=== PATIENT | male | born 1945 | race Caucasian/White ===

== ENCOUNTER 2024-03-04 09:46 | Emergency (ER) | payer MEDICARE, SELFPAY ==
[2024-03-04 10:04] VITALS: BP 99/79; PULSE 102; RESP 16; TEMP 36.8; O2SAT 99
--- NOTE | 2024-03-04 10:06 | ED_ITS ---
HPI - Abdominal Pain General Chief Complaint: Abdominal Pain Stated Complaint: ABD PAIN,DIZZINESS,NAUSEA Time Seen by Provider: 03/04/24 09:49 Source: patient Mode of arrival: ambulatory Limitations: no limitations History of Present Illness HPI narrative: Patient is a 78-year-old male who presents with 3 weeks of abdominal pain that is worsening along with intermittent dizziness and nausea. Patient states abdom inal pain wakes him up at night and he turns to adjust positions causing more pain. Reports pain is diffuse across the entire abdomen. Denies any changes in bowel habits. Denies any blood in urine, low back pain, fever, chills. Has no history of abdominal surgeries. Has had decreased in appetite due to general fatigue and not feeling well. Related Data Home Medications Medication Instructions Recorded Confirmed alendronate 70 mg tablet 70 mg PO DIRECTED 03/04/24 03/04/24 Allergies Allergy/AdvReac Type Severity Reaction Status Date / Time No Known Allergies Allergy Verified 03/04/24 10:22 Review of Systems Review of Systems: All systems reviewed & are unremarkable except as noted in HPI and below Constitutional: Constitutional: Denies body ache(s), Denies chills, Denies fatigue, Denies fever(s), Denies headache(s), Denies malaise and Denies weakness Eyes: Eyes: Denies blurry vision, Denies irritation and Denies loss of vision ENT: Denies otalgia, Denies headache(s), Denies nasal discharge, Denies sinus pain and Denies sore throat Cardiovascular: Cardiovascular: Denies chest pain, Denies irregular heart rhythm and Denies dyspnea Respiratory: Respiratory: Denies dyspnea Gastrointestinal: Gastrointestinal: Reports abdominal pain, Denies melena, Denies hematochezia, Denies diarrhea, Reports nausea and Denies vomiting Musculoskeletal: Musculoskeletal: Denies back pain, Denies myalgias and Denies arthralgias Integumentary/Breasts: Skin/Breast: Denies pruritus and Denies rash Neurologic: Reports dizziness, Denies headache(s), Denies loss of vision and Denies weakness Psychiatric: Psychiatric: Reports no additional psychiatric complaints Endocrine: Endocrine: Denies fatigue PMFSH Comments At time of signature, agree with nursing past medical, surgical, social and family history. There is no relevant family history pertinent to the presenting complaint. Exam Const: General: cooperative, healthy appearing, comfortable, no acute distress and well nourished Nutritional Appearance: well nourished Orientation/consciousness: patient oriented x3 Limitations: no limitations HENMT: Head: normal to inspection, normocephalic and atraumatic Ears: hearing grossly normal bilaterally and external ears normal Face/Nose/Sinus: Normal external nose present, normal facial exam and face symmetric Face and sinus: normal facial exam and face symmetric Mouth: Yes lip normal Eyes: General: appearance normal, both eyes and all related structures Alignment and Position: alignment normal and position normal Periorbital: periorbital findings normal Eyelids: eyelids normal Pupils: Equal, round and reactive pupils present EOM: EOMs intact bilaterally Neck: Neck: normal visual inspection, full ROM and supple Chest: Chest palpation & inspection: normal inspection of the chest Resp: Effort & Inspection: normal respiratory effort and able to speak in complete sentences Auscultation: clear to auscultation bilaterally Cardio: Rate: regular rate Rhythm: regular rhythm Heart sounds: S1 normal heart sound present and S2 normal heart sound present GI: Inspection: normal to inspection GI Palp: Yes abdominal tenderness, Yes Firmness to palpation present (GI), Yes Tenderness to palpation present (GI) and Yes Guarding due to palpation present (GI) Auscultation: Hypoactive bowel sounds present Skin: General skin exam: normal color and no rashes or lesions noted Neuro: General: patient oriented x3 and moves all extremities Cranial nerves: Yes Equal, round and reactive pupils present Speech: normal speech Gait exam (Neuro): Normal gait present Extrem: General: normal to inspection, full ROM and no edema Psych: Appearance: grossly normal and well kempt Mental Status: mental status grossly normal Speech and movement: Normal speech and movement present Affect: normal affect Attitude: cooperative Thought process: Normal thought process present Course Course Emergency Course: Patient being transferred to [facility] for further workup and evaluation of abdominal pain. Portions of this record may have been created with voice recognition software Level of Care: Express Care Visit Vital Signs Vital signs: Vital Signs Temperature 36.8 C 03/04/24 10:04 Pulse Rate 102 H 03/04/24 10:04 Respiratory Rate 16 03/04/24 10:04 Blood Pressure 99/79 L 03/04/24 10:04 Pulse Oximetry 99 03/04/24 10:04 Temperature 36.8 C 03/04/24 10:04 Pulse Rate 102 H 03/04/24 10:04 Respiratory Rate 16 03/04/24 10:04 Blood Pressure 99/79 L 03/04/24 10:04 Pulse Oximetry 99 03/04/24 10:04 Reviewed Transfer Transfered to: [facility] Transportation: Other (Private auto) Transfer rationale: Abdominal pain, dizziness Accepting physician: Stephanie MARAVILLA MDM - Abdominal Pain MDM Narrative Medical decision making narrative: Patient being transferred to [facility] for further workup and evaluation for abdominal pain and dizziness Differential Diagnosis Differential diagnosis: Likely abdominal pain, acute appendicitis, constipation, diverticulitis, pancreatitis, small bowel obstruction and other (Cancer) Medical Records Attestation: I reviewed the patient's medical records. Discharge Plan Discharge Clinical Impression: Abdominal pain Patient Disposition: Acute Care Hospital Condition: Stable Prescriptions: No Action alendronate 70 mg tablet 70 mg PO DIRECTED Follow-up/Referrals: PHYSICIAN NOT ON STAFF,NONSTAFF [Primary Care Provider] - Time of Disposition: 10:23
== END 2024-03-04 10:18 | disposition short-term general hospital (02) ==
PROVIDERS: Emergency Provider Nurse Practitioner Family
DX: R10.9 Unspecified abdominal pain (principal); M81.0 Age-related osteoporosis without current pathological fracture
CPT/HCPCS: 99202; G0463

== ENCOUNTER 2024-03-04 10:38 | Emergency (ER) | payer MEDICARE, SELFPAY ==
--- NOTE | ~2024-03-04 | CT_ITS ---
EXAMINATION: CTA chest PE abdomen pel DATE: 03/04/2024 15:17 INDICATION: Tachycardia. Cough. Abdominal pain. TECHNIQUE: Computed tomography angiography (CTA) of the chest was performed with 100 mL Omnipaque-350 intravenous contrast timed to evaluate the pulmonary arteries. Coronal maximum intensity projection 3D-reconstructions were created by the technologist. Computed tomography (CT) of the abdomen and pelv is was performed with intravenous contrast. Automated exposure control and iterative reconstruction t echnique were employed. The dose-length product was 405.73 mGy-cm. COMPARISON: None. FINDINGS: CTA chest: The lungs demonstrate mild atelectasis. A calcified right lung nodule and calcified right hilar and paraesophageal lymph nodes are consistent with old granulomatous disease. No pleural effusi on. The heart size is normal. There are coronary artery calcifications. No pericardial effusion. Ther e are changes of posterior fusion procedure from T2 to T7. There is mild chronic height loss of multi ple vertebral bodies. CT abdomen and pelvis: There are greater than 40 low-attenuation masses in the liver measuring up to 6.1 cm. The gallbladder is normal in size. Gallbladder wall thickening may be secondary to interstiti al edema. The spleen is normal. There are 1.5 cm and 2.5 cm low-attenuation masses in the pancreas. T he adrenal glands are normal. There is cortical thinning of the kidneys. The prostate is mildly enlar ged. There are brachytherapy seeds in the prostate. There is diffuse bladder wall thickening, likely secondary to chronic outlet obstruction. There is diverticulosis of the colon without evidence of div erticulitis. The appendix is normal. There are bilateral inguinal hernias containing fat. There are n o pathologically enlarged lymph nodes. There is trace ascites. There is screw fixation of left femora l head and neck. 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 There is a burst fracture of L1 with sc lerosis, likely subacute. IMPRESSION: 1. Pancreatic masses and liver masses, consistent with metastatic disease. Consider ultrasound-guided core needle biopsy of a liver mass. Reviewed, dictated and finalized at location [facility] IMPRESSION: 1. Pancreatic masses and liver masses, consistent with metastatic disease. Cons ider ultrasound-guided core needle biopsy of a liver mass.
[2024-03-04 10:39] VITALS: BP 117/78; PULSE 104; RESP 16; TEMP 36.6; O2SAT 98
[2024-03-04 12:16] LABS: Hematocrit 35.6 % (42.0-52.0); Hemoglobin 11.8 g/dL (14.0-18.0); Mean Corpuscular HGB Conc 33.1 g/dl (32-36); Mean Corpuscular Hemoglobin 30.8 pg (26-34); Mean Platelet Volume 9.9 fl (7.4-10.4); Platelet Count Result 348 k/mm3 (150-375); Red Blood Count 3.83 M/mm3 (4.6-6.20); Red Cell Distribution Width 12.5 % (11.5-14.5); White Blood Count 21.9 K/mm3 (4.5-10.0)
[2024-03-04 12:27] LABS: Alanine Aminotransferase 69 U/L (6-50); Albumin Level 3.6 g/dL (3.5-5.1); Alkaline Phosphatase 345 U/L (38-126); Anion Gap 9 mmol/L (4-12); Aspartate Amino Transferase 86 U/L (17-59); Bilirubin,Total 0.8 mg/dL (0.2-1.3); Blood Urea Nitrogen 24 mg/dL (9-20); Calcium 8.6 mg/dL (8.4-10.2); Carbon Dioxide 26 mmol/L (22-30); Chloride 95 mmol/L (98-107); Estimated Glomerular Filt Rate 39; Glucose 108 mg/dL (65-110); Lipase 207 U/L (23-300); Potassium 3.9 mmol/L (3.4-5.0); Sodium 130 mmol/L (137-145)
[2024-03-04 12:39] LABS: Add Urine Microscopic? YES; Appearance Urine Cloudy (Clear); Bacteria Urine None Seen /hpf; Bilirubin Urine Negative (Negative); Blood Urine Negative (Negative); Color Urine Dark Yellow (Yellow); Glucose Urine UA Negative (Negative); Granular Casts Urine Present /lpf; Ketones Urine Trace mg/dL (Negative); Leukocyte Esterase Ur Negative LEU/UL (Negative); Mucus Urine Present /lpf; Nitrate Urine Negative (Negative); Non Pathogenic Casts >20; Protein Urine 1+ mg/dL (Negative); RBC Urine 0-2 /hpf (0-2); Specific Grav Ur 1.016 (1.001-1.035); Squamous Epithelial Cell Urine Moderate /hpf (Few); WBC Urine 0-5 /hpf (0-3)
[2024-03-04 12:49] LABS: Band Neutrophils Percent 11 % (0-6); Lymphocytes Absolute Manual 0.65 K/mm3 (1.1-4.5); Lymphocytes Percent Manual 3 % (18-44); Monocytes Absolute Manual 1.31 K/mm3 (0.1-0.90); Monocytes Percent Manual 6 % (3-9); Neutrophils Absolute Manual 19.71 K/mm3 (1.3-6.7); Neutrophils Percent Manual 79 % (46-73); Total Cells Counted 100
[2024-03-04 12:50] LABS: Basophils Absolute Manual 0.21 K/mm3 (0.0-0.1); Basophils Percent Manual 1 % (0-1)
[2024-03-04 12:51] LABS: Platelet Clumps Present; Platelet Estimate Adequate (Adequate); Schistocytes None Seen
--- NOTE | 2024-03-04 14:06 | ED.ABDPAIN ---
HPI - Abdominal Pain General Chief Complaint: Abdominal Pain <Amy Mack APRN - Last Filed: 03/04/24 14:11> Stated Complaint: abdominal pain <Amy Mack APRN - Last Filed: 03/04/24 14:11> Time Seen by Provider: 03/04/24 13:50 <Amy Mack APRN - Last Filed: 03/04/24 14:11> Focused HPI: Patient is a 78-year-old male presents to the ER with complaints of abdominal pain in his right and left upper quadrants that started approximately three weeks ago. He reports he initially thought he had a cold, but he reports the last couple of days he has felt loosy. The patient endorses a history of a broken back and prostate cancer. He denies shortness of breath, fever, or urinary symptoms. GENERAL: Well-appearing, well-nourished, and in no acute distress. HEAD: Normocephalic, atraumatic. CHEST: Clear to auscultation. ?No respiratory distress. HEART: Tachycardia. Regular rhythm. NEURO: ?Alert and oriented x3. Patient screened in triage and initial orders placed.? ?Additional care and disposition to be based upon?diagnostic testing and treatment. <Amy Mack APRN - Last Filed: 03/04/24 14:11> Related Data Home Medications: Home Medications Medication Instructions Recorded Confirmed alendronate 70 mg tablet 70 mg PO DIRECTED 03/04/24 03/04/24 <Amy Mack APRN - Last Filed: 03/04/24 14:11> Allergies/Adverse Reactions: Allergies Allergy/AdvReac Type Severity Reaction Status Date / Time No Known Allergies Allergy Verified 03/04/24 10:22 <Amy Mack APRN - Last Filed: 03/04/24 14:11> Review of Systems Review of Systems: All systems as dictated in HPI <Yao Chirinos PA-C - Last Filed: 03/05/24 01:47> Exam Narrative: GENERAL: Well-appearing, well-nourished, and in no acute distress. HEAD: Normocephalic, atraumatic. EYES: PERRLA and EOMI. ENT: Nares clear, no rhinorrhea or epistaxis. Mucous membranes moist. Oropharynx without tonsillar hypertrophy exudate or other lesions. NECK: Supple. No adenopathy or masses. CHEST: No respiratory distress. Clear to auscultation. No wheezes rales or rhonchi HEART: Regular rate and rhythm. No murmur heard. Normal peripheral pulses. ABDOMEN: Soft, nontender, nondistended, normal active bowel sounds. MSK: Normal range of motion. No edema. SKIN: Warm, dry, no rash. NEURO: Alert and oriented x4. No focal deficits. PSYCH: Normal mood and affect. <Yao Chirinos PA-C - Last Filed: 03/05/24 01:47> Course Vital Signs Vital signs: Vital Signs Temperature 97.8 F 03/04/24 10:39 Pulse Rate 104 H 03/04/24 10:39 Respiratory Rate 16 03/04/24 10:39 Blood Pressure 117/78 03/04/24 10:39 Pulse Oximetry 98 03/04/24 10:39 Oxygen Delivery Room Air 03/04/24 10:39 Temperature 97.8 F 03/04/24 10:39 Pulse Rate 73 03/04/24 16:53 Respiratory Rate 20 03/04/24 16:53 Blood Pressure 129/72 03/04/24 16:53 Pulse Oximetry 100 03/04/24 16:53 Oxygen Delivery Room Air 03/04/24 10:39 <Amy Mack, DIRECTOR OF SUSTAINABLE DESIGN - Last Filed: 03/04/24 14:11> Vital Signs Temperature 97.8 F 03/04/24 10:39 Pulse Rate 104 H 03/04/24 10:39 Respiratory Rate 16 03/04/24 10:39 Blood Pressure 117/78 03/04/24 10:39 Pulse Oximetry 98 03/04/24 10:39 Oxygen Delivery Room Air 03/04/24 10:39 Temperature 97.8 F 03/04/24 10:39 Pulse Rate 73 03/04/24 16:53 Respiratory Rate 20 03/04/24 16:53 Blood Pressure 129/72 03/04/24 16:53 Pulse Oximetry 100 03/04/24 16:53 Oxygen Delivery Room Air 03/04/24 10:39 <ROSITA Loya Last Filed: 03/05/24 01:47> MDM - Abdominal Pain MDM Narrative Medical decision making narrative: This is a 79-year-old male who presents to the ED for chief complaint of abdominal pain x3 weeks. Vitals are normal. Exam is benign overall. No evidence of acute abdomen. Lab work remarkable for elevated white count of 21.9. CMP shows mildly elevated BUN and creatinine of 24 and 1.70. Alk-phos elevated at 345. Urinalysis relatively unremarkable. CTA chest abdomen pelvis: IMPRESSION: 1. Pancreatic masses and liver masses, consistent with metastatic disease. Consider ultrasound-guided core needle biopsy of a liver mass. Patient does have history of prostate cancer and this presentation today is likely consistent with metastatic disease from the prostate. Offered admission for further evaluation and management for the patient but he is adamant on going home. He feels well enough to go home and would like to follow-up with his regular doctors. I do not feel that the patient has a significant infection even though his white count is elevated, most likely due to cancer. Vitals remain normal. Patient will be discharged in stable condition. Supportive measures discussed and return precautions given. Patient is understanding and agreeable with plan for discharge with PCP follow-up. <Yao Chirinos PA-C - Last Filed: 03/05/24 01:47> Lab Data Result diagrams: 03/04/24 11:51 03/04/24 11:51 <Amy Mack APRN - Last Filed: 03/04/24 14:11> Labs: Lab Results 03/04/24 03/04/24 Range/Units 11:51 11:56 WBC 21.9 H (4.5-10.0) K/mm3 RBC 3.83 L (4.6-6.20) M/mm3 Hgb 11.8 L (14.0-18.0) g/dL Hct 35.6 L (42.0-52.0) % MCV 93.0 (80-100) fl MCH 30.8 (26-34) pg MCHC 33.1 (32-36) g/dl RDW 12.5 (11.5-14.5) % Plt Count 348 (150-375) k/mm3 MPV 9.9 (7.4-10.4) fl Immature Gran % (Auto) Not Reportable Neut % (Auto) Not Reportable Lymph % (Auto) Not Reportable [place] % (Auto) Not Reportable Eos % (Auto) Not Reportable Baso % (Auto) Not Reportable Lymph # (Auto) Not Reportable [place] # (Auto) Not Reportable Eos # (Auto) Not Reportable Baso # (Auto) Not Reportable Abs Immat Gran (auto) Not Reportable Absolute Neuts (auto) Not Reportable Absolute Nucleated RBC Not Reportable Total Counted 100 Neutrophils % (Manual) 79 H (46-73) % Band Neutrophils % 11 H (0-6) % Lymphocytes % (Manual) 3 L (18-44) % Monocytes % (Manual) 6 (3-9) % Basophils % (Manual) 1 (0-1) % Nucleated RBC % Not Reportable Abs Neuts (Manual) 19.71 H (1.3-6.7) K/mm3 Abs Lymphs (Manual) 0.65 L (1.1-4.5) K/mm3 Abs Monocytes (Manual) 1.31 H (0.1-0.90) K/mm3 Abs Basophils (Manual) 0.21 H (0.0-0.1) K/mm3 Platelet Estimate Adequate (Adequate) Clumped Platelets Present Schistocytes None seen Sodium 130 L (137-145) mmol/L Potassium 3.9 (3.4-5.0) mmol/L Chloride 95 L (98-107) mmol/L Carbon Dioxide 26 (22-30) mmol/L Anion Gap 9 (4-12) mmol/L BUN 24 H (9-20) mg/dL Creatinine 1.70 H (0.7-1.3) mg/dL Estim Creat Clear Calc Not Reportable Estimated GFR 39 L (59 - ) Glucose 108 (65-110) mg/dL Calcium 8.6 (8.4-10.2) mg/dL Total Bilirubin 0.8 (0.2-1.3) mg/dL AST 86 H (17-59) U/L ALT 69 H (6-50) U/L Alkaline Phosphatase 345 H (38-126) U/L Total Protein 7.0 (6.3-8.2) g/dL Albumin 3.6 (3.5-5.1) g/dL Lipase 207 (23-300) U/L Urine Color Dark yellow (Yellow) Urine Appearance Cloudy H (Clear) Urine pH 5.0 (5.0-9.0) Ur Specific [place] 1.016 (1.001-1.035) Urine Protein 1+ H (Negative) mg/dL Urine Glucose (UA) Negative (Negative) mg/dL Urine Ketones Trace H (Negative) mg/dL Ur Blood (Man) Negative (Negative) Urine Nitrate Negative (Negative) Urine Bilirubin Negative (Negative) Urine Urobilinogen 1.0 (<2.0) mg/dL Leukocyte Esterase Rfl Negative (Negative) GILMA/UL Urine RBC 0-2 (0-2) /hpf Urine WBC 0-5 (0-3) /hpf Ur Squamous Epith Cells Moderate (Few) /hpf Urine Bacteria None seen /hpf Urine Casts >20 Granular Casts Present (None) /lpf Urine Mucus Present /lpf <Amy Mack, DIRECTOR OF SUSTAINABLE DESIGN - Last Filed: 03/04/24 14:11> Lab Results 03/04/24 03/04/24 Range/Units 11:51 11:56 WBC 21.9 H (4.5-10.0) K/mm3 RBC 3.83 L (4.6-6.20) M/mm3 Hgb 11.8 L (14.0-18.0) g/dL Hct 35.6 L (42.0-52.0) % MCV 93.0 (80-100) fl MCH 30.8 (26-34) pg MCHC 33.1 (32-36) g/dl RDW 12.5 (11.5-14.5) % Plt Count 348 (150-375) k/mm3 MPV 9.9 (7.4-10.4) fl Immature Gran % (Auto) Not Reportable Neut % (Auto) Not Reportable Lymph % (Auto) Not Reportable [place] % (Auto) Not Reportable Eos % (Auto) Not Reportable Baso % (Auto) Not Reportable Lymph # (Auto) Not Reportable [place] # (Auto) Not Reportable Eos # (Auto) Not Reportable Baso # (Auto) Not Reportable Abs Immat Gran (auto) Not Reportable Absolute Neuts (auto) Not Reportable Absolute Nucleated RBC Not Reportable Total Counted 100 Neutrophils % (Manual) 79 H (46-73) % Band Neutrophils % 11 H (0-6) % Lymphocytes % (Manual) 3 L (18-44) % Monocytes % (Manual) 6 (3-9) % Basophils % (Manual) 1 (0-1) % Nucleated RBC % Not Reportable Abs Neuts (Manual) 19.71 H (1.3-6.7) K/mm3 Abs Lymphs (Manual) 0.65 L (1.1-4.5) K/mm3 Abs Monocytes (Manual) 1.31 H (0.1-0.90) K/mm3 Abs Basophils (Manual) 0.21 H (0.0-0.1) K/mm3 Platelet Estimate Adequate (Adequate) Clumped Platelets Present Schistocytes None seen Sodium 130 L (137-145) mmol/L Potassium 3.9 (3.4-5.0) mmol/L Chloride 95 L (98-107) mmol/L Carbon Dioxide 26 (22-30) mmol/L Anion Gap 9 (4-12) mmol/L BUN 24 H (9-20) mg/dL Creatinine 1.70 H (0.7-1.3) mg/dL Estim Creat Clear Calc Not Reportable Estimated GFR 39 L (59 - ) Glucose 108 (65-110) mg/dL Calcium 8.6 (8.4-10.2) mg/dL Total Bilirubin 0.8 (0.2-1.3) mg/dL AST 86 H (17-59) U/L ALT 69 H (6-50) U/L Alkaline Phosphatase 345 H (38-126) U/L Total Protein 7.0 (6.3-8.2) g/dL Albumin 3.6 (3.5-5.1) g/dL Lipase 207 (23-300) U/L Urine Color Dark yellow (Yellow) Urine Appearance Cloudy H (Clear) Urine pH 5.0 (5.0-9.0) Ur Specific [place] 1.016 (1.001-1.035) Urine Protein 1+ H (Negative) mg/dL Urine Glucose (UA) Negative (Negative) mg/dL Urine Ketones Trace H (Negative) mg/dL Ur Blood (Man) Negative (Negative) Urine Nitrate Negative (Negative) Urine Bilirubin Negative (Negative) Urine Urobilinogen 1.0 (<2.0) mg/dL Leukocyte Esterase Rfl Negative (Negative) GILMA/UL Urine RBC 0-2 (0-2) /hpf Urine WBC 0-5 (0-3) /hpf Ur Squamous Epith Cells Moderate (Few) /hpf Urine Bacteria None seen /hpf Urine Casts >20 Granular Casts Present (None) /lpf Urine Mucus Present /lpf <Yao Chirinos PA-C - Last Filed: 03/05/24 01:47> Imaging Data Radiologist's impression: ITS Impressions Chest/Abdomen/Pelvis CTA 03/04/24 15:20 IMPRESSION: 1. Pancreatic masses and liver masses, consistent with metastatic disease. Consider ultrasound-guided core needle biopsy of a liver mass. <Amy Mack APRN - Last Filed: 03/04/24 14:11> ITS Impressions Chest/Abdomen/Pelvis CTA 03/04/24 15:20 IMPRESSION: 1. Pancreatic masses and liver masses, consistent with metastatic disease. Consider ultrasound-guided core needle biopsy of a liver mass. <Yao Chirinos PA-C - Last Filed: 03/05/24 01:47> Discharge Plan Discharge Clinical Impression: Abdominal pain, Abnormal CT scan <Amy Mack APRN - Last Filed: 03/04/24 14:11> Patient Disposition: Home, Self-Care <Amy Mack APRN - Last Filed: 03/04/24 14:11> Condition: Stable <Amy Mack APRN - Last Filed: 03/04/24 14:11> Instructions: Antibiotic Form <Amy Mack APRN - Last Filed: 03/04/24 14:11> Additional Instructions: Your exam and imaging today are concerning for metastatic cancer masses of the pancreas and liver. Your lab work is abnormal as well. This should be followed up very closely by your PCP and oncologist. If you have any new or worsening symptoms please return to the ER for further evaluation. <Amy Mack APRN - Last Filed: 03/04/24 14:11> Prescriptions: New hydrocodone-acetaminophen 5-325 mg tablet 1 tablet PO Q8H PRN (Reason: pain) Qty: 14 0RF No Action alendronate 70 mg tablet 70 mg PO DIRECTED <Amy Mack APRN - Last Filed: 03/04/24 14:11> Follow-up/Referrals: PHYSICIAN NOT ON STAFF,NONSTAFF [Non-Staff] - <Amy Mack APRN - Last Filed: 03/04/24 14:11> Time of Disposition: 17:37 <Amy Mack APRN - Last Filed: 03/04/24 14:11> 17:37 <Yao Chirinos PA-C - Last Filed: 03/05/24 01:47>
[2024-03-04 16:53] VITALS: BP 129/72; PULSE 73; RESP 20; O2SAT 100
== END 2024-03-04 19:43 | disposition home or self-care (01) ==
PROVIDERS: Emergency Medicine; Emergency Provider Physician Assistant
DX: R10.10 Upper abdominal pain, unspecified (principal); R93.89 Abnormal findings on diagnostic imaging of other specified body structures
CPT/HCPCS: 36415; 71275; 74177; 80053; 81001; 83690; 85025; 99284; Q9967